=== PATIENT | male | born 1985 | race Caucasian/White ===

== ENCOUNTER 2023-01-29 07:52 | Day surgery (SDC) | payer BC ==
[2023-01-27 16:01] LABS: BASOPHILS % (AUTO) 0.3 % (0.0-2.0); EOSINOPHILS # (AUTO) 0.1 K/uL (0.0-0.4); EOSINOPHILS % (AUTO) 1.4 % (0.0-4.0); HEMATOCRIT 45.1 % (36-54); LYMPHOCYTES # (AUTO) 2.1 K/uL (1.0-5.5); LYMPHOCYTES % (AUTO) 30.3 % (20.5-51.5); MEAN CORPUSCULAR HEMOGLOBIN 30 pg (27-31); MEAN CORPUSCULAR HGB CONC 33 % (32-36); MEAN CORPUSCULAR VOLUME 89 fL (79.0-98.0); MONOCYTES # (AUTO) 0.8 K/uL (0.0-1.0); PLATELET COUNT (AUTO) 244 K/uL (130-430); RED BLOOD CELL COUNT(AUTO) 5.08 MIL/uL (4.2-6.2); RED CELL DISTRIBUTION WIDTH 13.7 % (9.0-15.0)
[2023-01-27 16:07] LABS: CALCIUM 8.9 mg/dL (8.4-11.0); CREATININE 1.04 mg/dL (0.55-1.30); POTASSIUM 4.4 mmol/L (3.5-5.1)
[2023-01-27 16:08] LABS: BILIRUBIN,URINE NEGATIVE (NEGATIVE); BLOOD, URINE NEGATIVE (NEGATIVE); CLARITY/URINE CLEAR (CLEAR); COLOR,URINE YELLOW (YELLOW); GLUCOSE,URINE NEGATIVE (NEGATIVE); KETONES,URINE TRACE (NEGATIVE); LEUKOCYTE ESTERASE ,URINE NEGATIVE (NEGATIVE); NITRITE, URINE NEGATIVE (NEGATIVE); PROTEIN URINE TRACE (NEGATIVE); UROBILINOGEN,URINE 0.2 (0.2-1.0)
[2023-01-27 16:13] LABS: INR 1.2 (0.80-1.20); PROTHROMBIN TIME 11.9 SECS (9.5-12.5)
[~2023-01-29] VITALS: Ht 188 cm; Wt 83.9 kg
[~2023-01-29 07:52] MED LIST: ceFAZolin SODIUM 2 GM in D5W 100 ML IV ONE
[2023-01-29] MEDS ORDERED: BUPIVACAINE /PF 0.25% 30 ML VIAL INJ ONE (08:34)
[2023-01-29] MEDS ORDERED: PROPOFOL 200MG/ 20ML VIAL (DIPRIVAN) IV ONE (08:34)
[2023-01-29] MEDS ORDERED: NS IRRIG SOLN 1000 ML IR ONE (08:34)
[2023-01-29] MEDS ORDERED: WATER FOR IRRIGATION,STERILE 1,000 ML IRRIG.SOLN IR ONE (08:34)
[2023-01-29] MEDS ORDERED: MIDAZOLAM HCL 2 MG/2 ML VIAL (VERSED) ONE (08:34)
[2023-01-29] MEDS ORDERED: SEVOFLURANE 15 MIN GAS INH ONE (08:34)
[2023-01-29] MEDS ORDERED: LR 1,000 ML IV.SOLN IV ONE (08:34)
[2023-01-29] MEDS ORDERED: fentaNYL CITRATE/PF 100 MCG/2 ML AMP ONE (08:34)
[2023-01-29 08:45] VITALS: O2SAT 100
[2023-01-29] MEDS ORDERED: ACETAMINOPHEN I.V. 1000 MG 100 ML IV ONE (09:15)
[2023-01-29] MEDS ORDERED: ONDANSETRON HCL 4 MG/2 ML VIAL IVP PRN (09:15)
[2023-01-29] MEDS ORDERED: METOCLOPRAMIDE HCL 10 MG/2 ML VIAL IVP PRN (09:15)
[2023-01-29] MEDS ORDERED: IBUPROFEN 800 MG TABLET PO PRN (09:15)
[2023-01-29] MEDS ORDERED: HYDROmorphone 1 MG/ML INJ. CARTRIDGE IVP PRN (09:15)
[2023-01-29] MEDS ORDERED: HYDROmorphone 1 MG/ML INJ. CARTRIDGE ONE ×4 (12:13→16:16)
[2023-01-29 16:38] VITALS: PULSE 86; RESP 18
[2023-01-29 18:12] VITALS: BP_SYST 148
== END 2023-01-29 16:40 | disposition home or self-care (01) ==
LOC: SDS 07:52 → SMU 07:52 → SDS 16:40
PROVIDERS: ATTEND Orthopaedic Surgery Sports Medicine
DX: S52.502A Unspecified fracture of the lower end of left radius, initial encounter for closed fracture (principal); S52.612A Displaced fracture of left ulna styloid process, initial encounter for closed fracture; Z79.01 Long term (current) use of anticoagulants; V87.8XXA Person injured in other specified noncollision transport accidents involving motor vehicle (traffic), initial encounter; Y93.55 Activity, bike riding; Y92.828 Other wilderness area as the place of occurrence of the external cause; Y99.8 Other external cause status
CPT/HCPCS: 81003; 80048; 81001; 85025; 85610; 85730; 87081; 36415; 25609; 76000; J3490; J3465; J2704; J3010; J1170; J7060; J7120; C1713 ×10; J0131; C1769; 76001